=== PATIENT | female | born 1970 | race Two or more races ===

== ENCOUNTER 2017-11-24 15:43 | Emergency (ER) | payer OTHER ==
[~2017-11-24] VITALS: Ht 165.1 cm; Wt 68.0 kg
[~2017-11-24 15:43] MED LIST: AMOX1TAB12 PO; BENZOTIC15 ML OT; FIORICET 50-301 EACH PO; ORPH100T PO; OSEL75CA PO; PERCOCET 5/3251 TAB PO; PROTONIX40 MG PO; TRIPLE ANTIBIOT15 GM TP; TUSSI PRES-B L120 M1 PO; ULTRACET PO; ZANTAC300 MG PO; ZOFRAN4 MG PO
[2017-11-26] MEDS ORDERED: ULTRACET PO (00:51)
[2017-11-26] MEDS ORDERED: BUTALB-ACETAMI1 EACH PO (00:51)
[2017-11-26] MEDS ORDERED: SKELAXIN800 MG PO (00:51)
== END 2017-11-24 17:49 | disposition home or self-care (01) ==
LOC: ER 15:43
DX: R51 Headache (principal)

== ENCOUNTER → 2017-11-25 | Emergency (ER) | payer OTHER ==
[~2017-11-25] VITALS: Ht 165.1 cm; Wt 68.0 kg
[~2017-11-25] MED LIST changes: +BUTALB-ACETAMI1 EACH PO; +SKELAXIN800 MG PO
== END | disposition home or self-care (01) ==
LOC: ER 21:49
DX: G44.201 Tension-type headache, unspecified, intractable (principal); M62.830 Muscle spasm of back

== ENCOUNTER 2020-08-08 11:02 | Emergency (ER) | payer OTHER ==
[~2020-08-08] VITALS: Ht 165.1 cm; Wt 68.9 kg
== END 2020-08-08 16:28 | disposition home or self-care (01) ==
LOC: ER 11:02
DX: N83.291 Other ovarian cyst, right side (principal); R10.31 Right lower quadrant pain; Z03.818 Encounter for observation for suspected exposure to other biological agents ruled out

== ENCOUNTER 2022-01-11 11:50 | Emergency (ER) | payer OTHER ==
[~2022-01-11] VITALS: Ht 165.1 cm; Wt 74.8 kg
== END 2022-01-11 15:36 | disposition home or self-care (01) ==
LOC: ER 11:50
DX: U07.1 COVID-19 (principal); Z88.6 Allergy status to analgesic agent; Z88.8 Allergy status to other drugs, medicaments and biological substances

== ENCOUNTER 2025-01-08 13:17 | Emergency (ER) | payer BC ==
[~2025-01-08] VITALS: Ht 165.1 cm; Wt 77.1 kg
[2025-01-08] MEDS ORDERED: ALTACE1.25 MG PO (13:46)
[2025-01-08] MEDS ORDERED: CEFTRIAXONE SODIUM 1,000 MG VIAL IM STA (14:48)
[2025-01-08] MEDS ORDERED: TRAMADOL HCL 50 MG TABLET PO STA (14:50)
[2025-01-08] MEDS ORDERED: LIDOCAINE HCL 1% 10ML VIAL ONE (15:12)
[2025-01-08] MEDS ORDERED: CEFTRIAXONE SODIUM 1,000 MG VIAL ONE (15:13)
== END 2025-01-08 15:32 | disposition home or self-care (01) ==
LOC: ER 13:17
DX: N76.4 Abscess of vulva (principal)

== ENCOUNTER 2025-07-23 14:43 | Emergency (ER) | payer BC ==
[~2025-07-23] VITALS: Ht 165.1 cm; Wt 77.1 kg
[~2025-07-23 14:43] MED LIST changes: +ALTACE1.25 MG PO
[2025-07-23] MEDS ORDERED: HYOSCYAMINE SULFATE 0.125 MG TAB.SUBL ONE (16:47)
[2025-07-23] MEDS ORDERED: HYOSCYAMINE SULFATE 0.125 MG TAB.SUBL SL STA (16:47)
[2025-07-23 17:15] LABS: BASO % 0.4 % (0.1-1.2); EOS # 0.29 (0.04-0.54); EOS % 4.2 % (0.7-7.0); LYMPH # 2.04 (1.18-3.74); LYMPH % 29.3 % (19.3-53.1); MEAN PLATELET VOLUME 11.70 fl (9.4-12.4); MONO # 0.31 (0.24-0.82); MONO % 4.4 % (4.7-12.5); NEUT # 4.29 (1.56-6.13); NEUT % 61.6 % (34.0-71.1); RED CELL DISTRIBUTION WIDTH 13.7 % (11.6-14.4)
[2025-07-23 18:04] LABS: URINE APPEARANCE Clear; URINE BILIRRUBIN Negative (NEGATIVE); URINE BLOOD Trace; URINE COLOR Yellow; URINE GLUCOSE Negative (NEGATIVE); URINE KETONE Negative (NEGATIVE); URINE LEUKOCYTE Negative; URINE NITRATE Negative; URINE PROTEIN Negative (NEGATIVE); URINE UROBILINOGEN 0.2 E.U./dl
[2025-07-23 18:10] LABS: URINE BACTERIA 853.1 uL (0.0-1933); URINE EPITHELIAL CELLS 78.2 uL (0.0-38.8); URINE RBC 13.0 uL (0.0-20.8); URINE WBC 27.3 uL (0.0-23.2)
[2025-07-23 18:12] LABS: ALT/SGPT 28.0 U/L (12-78); AST/SGOT 20.0 U/L (15-37); BILIRUBIN TOTAL 0.28 mg/dL (0.3-1.2); BUN CREA RATIO 12.0 (7.0-25.0); CREATININE SERUM 0.67 mg/dL (0.55-1.02); GFR 91.38; GLOBULINA 3.7 G/DL (2.4-3.5); GLUCOSE FASTING 94.0 mg/dL (65-100); OSMOLALITY SERUM 287.0 MOSM/KG (275-295)
[2025-07-23 18:19] LABS: URINE CAST 0.00 uL (0.0-1.40)
[2025-07-23] MEDS ORDERED: DICYCLOMINE HCL 20 MG TABLET PO STA (19:01)
[2025-07-23] MEDS ORDERED: DICYCLOMINE HCL 10 MG CAPSULE PO ONE (19:39)
== END 2025-07-23 20:25 | disposition home or self-care (01) ==
LOC: ER 14:43
PROVIDERS: General Practice
DX: R10.31 Right lower quadrant pain (principal); Z88.6 Allergy status to analgesic agent

== ENCOUNTER 2025-08-04 18:55 | Emergency (ER) | payer BC ==
[~2025-08-04] VITALS: Ht 165.1 cm; Wt 74.8 kg
[2025-08-04 19:40] VITALS: BP 150/82; O2SAT 99
[2025-08-04] MEDS ORDERED: DEXAMETHASONE SODIUM PHOSPHATE 4 MG/ML VIAL IM STA (19:56)
[2025-08-04] MEDS ORDERED: CEFTRIAXONE SODIUM 1,000 MG VIAL IM STA (19:56)
[2025-08-04] MEDS ORDERED: AMOX-CLAV 875-1 EACH PO (19:58)
[2025-08-04] MEDS ORDERED: DEXAMETHASONE SODIUM PHOSPHATE 4 MG/ML VIAL ONE (20:40)
[2025-08-04] MEDS ORDERED: CEFTRIAXONE SODIUM 1,000 MG VIAL ONE (20:40)
== END 2025-08-04 21:57 | disposition home or self-care (01) ==
LOC: ER 18:55
DX: W57.XXXA Bitten or stung by nonvenomous insect and other nonvenomous arthropods, initial encounter (principal); M79.622 Pain in left upper arm; Z88.6 Allergy status to analgesic agent